=== PATIENT | female | born 1965 | race Hispanic/Latino ===

== ENCOUNTER 2018-12-11 00:07 | Emergency (ER) | payer OTHER ==
[2018-12-11 00:32] VITALS: BP 138/90; PULSE 103; RESP 19; TEMP 98.7; O2SAT 96; BMI 20.9
--- NOTE | 2018-12-11 00:53 | C.PDOC ---
Time Seen by Provider: 12/11/18 00:51 Chief Complaint (Nursing): Substance Abuse Past Medical History Reviewed: Historical Data, Nursing Documentation, Vital Signs Vital Signs: Last Vital Signs Temp 98.7 F 12/11/18 00:23 Pulse 103 H 12/11/18 00:23 Resp 19 12/11/18 00:23 BP 138/90 12/11/18 00:23 Pulse Ox 96 12/11/18 00:23 - Medical History PMH: Anxiety, Depression, HTN - [facility] Procedures ALCOHOL DETOXIFICATION (01/26/06) Family History: States: No Known Family Hx - Social History Hx Tobacco Use: No Hx Alcohol Use: Yes Hx Substance Use: No - Immunization History Hx Tetanus Toxoid Vaccination: No Hx Influenza Vaccination: Yes Hx Pneumococcal Vaccination: Yes ED Course And Treatment - Laboratory Results Result Diagrams: 12/11/18 01:14 12/11/18 01:14 O2 Sat by Pulse Oximetry: 96 Pulse Ox Interpretation: Normal Medical Decision Making Medical Decision Making: Upon provider reevaluation patient is feeling better, is medically stable, and requires no further treatment in the ED at this time. Patient will be discharged home . Counseling was provided and all questions were answered regarding diagnosis and need for follow up with the referred clinic. There is agreement to discharge plan. Return if symptoms persist or worsen. Disposition Counseled Patient/Family Regarding: Studies Performed, Diagnosis, Need For Followup - Disposition Referrals: [facility] [Outside] Disposition: HOME/ ROUTINE Disposition Time: 00:53 Condition: FAIR Additional Instructions: Please call the numbers provided by the cotton farmworker Instructions: Alcohol Abuse and Alcoholism (DC) Forms: [employer] [facility] (Slovak) - Clinical Impression Clinical Impression: Alcohol abuse
[2018-12-11 01:18] LABS: BASO # 0.1 K/uL (0.0-0.2); BASO % 1.8 % (0.0-2.0); HEMOGLOBIN 14.6 g/dL (11.0-16.0); LYMPH # 1.8 K/uL (1.0-4.3); LYMPH % 42.7 % (20.0-40.0); MEAN CELL VOLUME 98.2 fL (81.0-99.0); MEAN CORPUSCULAR HEMOGLOBIN 33.7 pg (27.0-31.0); MEAN CORPUSCULAR HGB CONC 34.3 g/dL (33.0-37.0); MEAN PLATELET VOLUME 8.2 fL (7.2-11.7); MONO # 0.4 K/uL (0.0-0.8); MONO % 8.4 % (0.0-10.0); NEUT % 46.1 % (50.0-75.0); RBC 4.34 Mil/uL (3.80-5.20); RED CELL DISTRIBUTION WIDTH 16.3 % (11.5-14.5); WHITE BLOOD COUNT 4.3 K/uL (4.8-10.8)
[2018-12-11 01:22] LABS: SQUAMOUS EPITHIAL 1 /hpf (0-5); URINE BACTERIA MOD (<OCC); URINE BILIRUBIN NEGATIVE (NEGATIVE); URINE BLOOD 2+ (NEGATIVE); URINE CLARITY Clear (Clear); URINE COLOR Yellow (YELLOW); URINE GLUCOSE (UA) NORMAL (Normal); URINE LEUKOCYTE ESTERASE NEG Leu/uL (Negative); URINE PROTEIN 2+ mg/dL (NEGATIVE); URINE UROBILINOGEN NORMAL mg/dL (0.2-1.0)
[2018-12-11 01:33] LABS: ALB/GLOB RATIO 1.7 (1.0-2.1); BLOOD UREA NITROGEN 11 mg/dL (7-17); CALCIUM 9.3 mg/dl (8.6-10.4); GFR NON-AFRICAN AMERICAN > 60
[2018-12-11 01:34] LABS: ALT/SGPT 96 U/L (9-52); AST/SGOT 212 U/L (14-36)
[2018-12-11 01:36] LABS: BARBITURATES, UR NEGATIVE (NEGATIVE); BENZODIAZEPINES, UR NEGATIVE (NEGATIVE); OPIATES, UR NEGATIVE (NEGATIVE); PHENCYCLIDINE, UR NEGATIVE (NEGATIVE)
--- NOTE | 2018-12-11 02:28 | C.PDOC ---
History Of Present Illness The patient presents to the ED requesting alcohol detox. Patient denies suicidal/homicidal ideation and offers no other complaints at this time. Time Seen by Provider: 12/11/18 00:51 Chief Complaint (Nursing): Substance Abuse History Per: Patient History/Exam Limitations: no limitations Onset/Duration Of Symptoms: Hrs Current Symptoms Are (Timing): Still Present Suicide/Self Injury Attempted (Context): None Modifying Factor(s): Alcohol Associated Symptoms: denies: Suicidal Thoughts, Suicidal Plan Involuntary Hold By: None Recent travel outside of the [place]: No Additional History Per: Patient Past Medical History Reviewed: Historical Data, Nursing Documentation, Vital Signs Vital Signs: Last Vital Signs Temp 98.7 F 12/11/18 00:23 Pulse 103 H 12/11/18 00:23 Resp 19 12/11/18 00:23 BP 138/90 12/11/18 00:23 Pulse Ox 96 12/11/18 02:06 - Medical History PMH: Anxiety, Depression, HTN Surgical History: No Surg Hx - [facility] Procedures ALCOHOL DETOXIFICATION (01/26/06) Family History: States: No Known Family Hx - Social History Hx Tobacco Use: No Hx Alcohol Use: Yes Hx Substance Use: No - Immunization History Hx Tetanus Toxoid Vaccination: No Hx Influenza Vaccination: Yes Hx Pneumococcal Vaccination: Yes Review Of Systems Constitutional: Negative for: Fever, Chills Cardiovascular: Negative for: Chest Pain, Palpitations Respiratory: Negative for: Cough, Shortness of Breath Skin: Negative for: Rash, Lesions, Jaundice, Bruising Psych: Positive for: Other (alcohol detox ) Physical Exam - Physical Exam Appears: Non-toxic, No Acute Distress Skin: Warm, Dry Head: Normacephalic Eye(s): bilateral: Normal Inspection Oral Mucosa: Moist Neck: Supple Chest: Symmetrical, No Deformity Cardiovascular: Rhythm Regular Respiratory: No Accessory Muscle Use Extremity: Normal ROM Neurological/Psych: Oriented x3 ED Course And Treatment - Laboratory Results Result Diagrams: 12/11/18 01:14 12/11/18 01:14 Lab Results: Total Bilirubin 1.1 mg/dL (0.2-1.3) 12/11/18 01:14 AST 212 U/L (14-36) H 12/11/18 01:14 ALT 96 U/L (9-52) H 12/11/18 01:14 Alkaline Phosphatase 59 U/L (38-126) 12/11/18 01:14 Total Protein 8.0 g/dL (6.3-8.3) 12/11/18 01:14 Albumin 5.0 g/dL (3.5-5.0) 12/11/18 01:14 Globulin 3.0 gm/dL (2.2-3.9) 12/11/18 01:14 Albumin/Globulin Ratio 1.7 (1.0-2.1) 12/11/18 01:14 Urine Color Yellow (YELLOW) 12/11/18 01:14 Urine Clarity Clear (Clear) 12/11/18 01:14 Urine pH 5.0 (5.0-8.0) 12/11/18 01:14 Ur Specific [place] 1.009 (1.003-1.030) 12/11/18 01:14 Urine Protein 2+ mg/dL (NEGATIVE) H 12/11/18 01:14 Urine Glucose (UA) Normal mg/dL (Normal) 12/11/18 01:14 Urine Ketones 1+ mg/dL (NEGATIVE) H 12/11/18 01:14 Urine Blood 2+ (NEGATIVE) H 12/11/18 01:14 Urine Nitrate Negative (NEGATIVE) 12/11/18 01:14 Urine Bilirubin Negative (NEGATIVE) 12/11/18 01:14 Urine Urobilinogen Normal mg/dL (0.2-1.0) 12/11/18 01:14 Ur Leukocyte Esterase Neg Chris/uL (Negative) 12/11/18 01:14 Urine WBC (Auto) 3 /hpf (0-5) 12/11/18 01:14 Urine RBC (Auto) 1 /hpf (0-3) 12/11/18 01:14 Ur Squamous Epith Cells 1 /hpf (0-5) 12/11/18 01:14 Urine Bacteria Mod (<OCC) H 12/11/18 01:14 O2 Sat by Pulse Oximetry: 96 (on RA ) Pulse Ox Interpretation: Normal Progress Note: Bloodwork and urinalysis ordered. Medical Decision Making Medical Decision Making: Upon provider reevaluation patient is feeling better, is medically stable, and requires no further treatment in the ED at this time. Patient will be discharged home. Counseling was provided and all questions were answered regarding diagnosis and need for follow up with the referred clinic. There is agreement to discharge plan. Return if symptoms persist or worsen. Disposition Counseled Patient/Family Regarding: Studies Performed, Diagnosis, Need For Followup - Disposition Referrals: [facility] [Outside] Disposition: HOME/ ROUTINE Disposition Time: 02:25 Condition: FAIR Additional Instructions: Please call the numbers provided by the shake out worker Instructions: Alcohol Abuse and Alcoholism (DC) Forms: [facility] (Scottish) - Clinical Impression Clinical Impression: Alcohol abuse - Scribe Statement The provider has reviewed the documentation as recorded by the Scribe (Tania Zuleta) Provider Attestation: All medical record entries made by the Scribe were at my direction and personally dictated by me. I have reviewed the chart and agree that the record accurately reflects my personal performance of the history, physical exam, medical decision making, and the department course for this patient. I have also personally directed, reviewed, and agree with the discharge instructions and disposition.
== END 2018-12-11 02:12 | disposition home or self-care (01) ==
LOC: C.ER 00:07
DX: F10.10 Alcohol abuse, uncomplicated (principal); I10 Essential (primary) hypertension